=== PATIENT | male | born 1995 | race Caucasian/White ===

== ENCOUNTER 2017-11-05 12:34 | Emergency (ER) | payer OTHER ==
[~2017-11-05] VITALS: Ht 180.3 cm; Wt 81.6 kg
[2017-11-05 12:37] VITALS: BP 149/90
== END 2017-11-05 13:49 | disposition home or self-care (01) ==
LOC: ED 13:43
DX: M43.06 Spondylolysis, lumbar region (principal)
CPT/HCPCS: 72110; 99284